=== PATIENT | male | born 1985 | race Caucasian/White ===

== ENCOUNTER 2020-08-12 11:52 | Emergency (ER) | payer SELFPAY ==
[~2020-08-12] VITALS: Ht 175.3 cm; Wt 72.6 kg
[2020-08-12] MEDS ORDERED: LIDOCAINE 1% HCL (LOCAL ANESTH.) INJ 20ML MDV IJ ONE (13:00)
[2020-08-12 14:34] VITALS: BP 126/83
== END 2020-08-12 14:37 | disposition home or self-care (01) ==
LOC: ER 11:52
DX: S41.111A Laceration without foreign body of right upper arm, initial encounter (principal); W54.0XXA Bitten by dog, initial encounter; Y93.89 Activity, other specified; Y92.89 Other specified places as the place of occurrence of the external cause; Y99.8 Other external cause status
CPT/HCPCS: 12004; 99283; J2001